=== PATIENT | female | born 1990 | race African-American/Black ===

== ENCOUNTER 2020-09-02 10:04 | Emergency (ER) | payer SELFPAY ==
[~2020-09-02] VITALS: Ht 165.1 cm; Wt 119.7 kg
[2020-09-02 10:14] VITALS: BP 134/96
--- NOTE | 2020-09-02 10:25 | NUR ---
SEEN AND EXAMINED BY .
--- NOTE | 2020-09-02 11:20 | NUR ---
Patient discharged to home in stable condition. Written and verbal after care instructions given. Patient verbalizes understanding of instruction.
== END 2020-09-02 11:21 | disposition home or self-care (01) ==
LOC: ER 10:10
DX: S63.591A Other specified sprain of right wrist, initial encounter (principal); F17.200 Nicotine dependence, unspecified, uncomplicated; Z88.0 Allergy status to penicillin; X58.XXXA Exposure to other specified factors, initial encounter; Y93.89 Activity, other specified; Y92.89 Other specified places as the place of occurrence of the external cause; Y99.8 Other external cause status
CPT/HCPCS: 73110

== ENCOUNTER 2023-11-30 01:57 | Inpatient (IN) | payer MEDICAID ==
[~2023-11-30] VITALS: Ht 165.1 cm; Wt 117.0 kg
[2023-11-30] MEDS ORDERED: CLINDAMYCIN HCL 150 MG CAPSULE ONE (03:09)
[2023-11-30] MEDS ORDERED: TDAP [DIPH/PERTUSSIS/TET] 0.5 ML VIAL IM ONE (03:10)
[2023-11-30] MEDS: CLINDAMYCIN HCL 150 MG CAPSULE PO ONE (03:10)
[2023-11-30] MEDS: HYDROCODONE/APAP 5/325MG TABLET PO ONE (03:11)
[2023-11-30] MEDS: TDAP [DIPH/PERTUSSIS/TET] 0.5 ML VIAL IM ONE (03:16)
[2023-11-30] MEDS ORDERED: MAG HYDROX/AL HYDROX/SIMETH 30 ML UDC PO PRN (04:00)
[2023-11-30] MEDS ORDERED: Z GUARD REMEDY 4 OZ OINT TP PRN (04:00)
[2023-11-30] MEDS ORDERED: MAGNESIUM HYDROXIDE 30 ML UDC PO PRN (04:00)
[2023-11-30] MEDS ORDERED: ONDANSETRON HCL/PF 4 MG/2 ML VIAL IVP PRN (04:00)
[2023-11-30] MEDS ORDERED: VANCOMYCIN 1 GM /D5W 250 ML PB IV ONE (04:14)
[2023-11-30] MEDS: VANCOMYCIN 1 GM in IV D5W 250 ML IV ONE (04:14)
[2023-11-30 04:22] LABS: BASOPHILS # (AUTO) 0.1 K/uL (0.0-0.2); BASOPHILS % (AUTO) 0.4 % (0.0-2.0); EOSINOPHILS # (AUTO) 0.2 K/uL (0.0-0.7); EOSINOPHILS % (AUTO) 1.7 % (0.0-6.0); HEMATOCRIT 39 % (33-45); HEMOGLOBIN 13.5 g/dL (11.5-14.8); LYMPHOCYTES # (AUTO) 2.1 K/uL (0.8-4.8); LYMPHOCYTES % (AUTO) 15.2 % (20.0-44.0); MEAN CORPUSCULAR HEMOGLOBIN 28 PG (26.0-33.0); MEAN CORPUSCULAR HGB CONC 34 g/dl (31.0-36.0); MEAN CORPUSCULAR VOLUME 82 fL (82-100); MONOCYTES # (AUTO) 0.9 K/uL (0.1-1.30); MONOCYTES % (AUTO) 6.6 % (2.0-12.0); NEUTROPHILS # (AUTO) 10.7 K/uL (1.8-8.9); NEUTROPHILS % (AUTO) 76.1 % (43.0-81.0); PLATELET COUNT (AUTO) 243 K/uL (150-450); RED BLOOD CELL COUNT(AUTO) 4.79 MIL/uL (4.0-5.2); RED CELL DISTRIBUTION WIDTH 14.1 % (11.5-15.0); WHITE BLOOD COUNT (AUTO) 14.1 K/uL (4.3-11.0)
[2023-11-30 04:36] LABS: INR 0.95 (0.91-1.10); PARTIAL THROMBOPLASTIN TIME 21.5 SEC (24.3-34.3); PROTHROMBIN TIME 10.1 SECS (9.2-11.1)
[2023-11-30 04:42] LABS: POTASSIUM 4.1 mmol/L (3.5-5.1)
[2023-11-30 04:43] LABS: CREATININE 0.6 mg/dL (0.6-1.3)
[2023-11-30] MEDS: IV NS 0.9% 1,000 ML IV SCH (05:09)
[2023-11-30 05:10] VITALS: BP 147/100; TEMP 98.4; O2SAT 98
[2023-11-30 07:00] VITALS: BP 135/90; TEMP 98.4; O2SAT 99
[2023-11-30] MEDS: HYDROCODONE/APAP 5/325MG TABLET PO PRN (09:58)
[2023-11-30] MEDS ORDERED: CLINDAMYCIN IV RTU IN D5W 600 MG/50 ML PIGGYBACK IV SCH (11:00)
[2023-11-30] MEDS: CLINDAMYCIN 600 MG in IV NS 0.9% 46 ML IV SCH ×2 (12:35→20:46)
[2023-11-30] MEDS: IV NS 0.9% 1,000 ML IV PRN (14:31)
[2023-11-30] MEDS: ACETAMINOPHEN 325 MG TABLET PO PRN (15:58)
[2023-11-30 16:00] VITALS: BP 140/92; TEMP 98.4; O2SAT 97
[2023-11-30 18:40] LABS: PREGNANCY TEST URINE QUAL POSITIVE (NEGATIVE)
[2023-11-30 20:13] VITALS: BP 145/89; TEMP 99.1; O2SAT 100
[2023-12-01 06:31] LABS: BASOPHILS % (AUTO) 0.1 % (0.0-2.0); EOSINOPHILS # (AUTO) 0.1 K/uL (0.0-0.7); EOSINOPHILS % (AUTO) 0.9 % (0.0-6.0); HEMATOCRIT 42 % (33-45); HEMOGLOBIN 14.1 g/dL (11.5-14.8); LYMPHOCYTES # (AUTO) 2.2 K/uL (0.8-4.8); LYMPHOCYTES % (AUTO) 14.4 % (20.0-44.0); MEAN CORPUSCULAR HEMOGLOBIN 28 PG (26.0-33.0); MEAN CORPUSCULAR HGB CONC 34 g/dl (31.0-36.0); MEAN CORPUSCULAR VOLUME 82 fL (82-100); MONOCYTES # (AUTO) 1.1 K/uL (0.1-1.30); MONOCYTES % (AUTO) 7.3 % (2.0-12.0); NEUTROPHILS # (AUTO) 11.9 K/uL (1.8-8.9); NEUTROPHILS % (AUTO) 77.3 % (43.0-81.0); PLATELET COUNT (AUTO) 224 K/uL (150-450); RED BLOOD CELL COUNT(AUTO) 5.07 MIL/uL (4.0-5.2); RED CELL DISTRIBUTION WIDTH 14.3 % (11.5-15.0); WHITE BLOOD COUNT (AUTO) 15.4 K/uL (4.3-11.0)
[2023-12-01 07:03] LABS: CALCIUM, SERUM 9.5 mg/dL (8.5-10.1); CREATININE 0.6 mg/dL (0.6-1.3); MAGNESIUM 1.9 mg/dL (1.8-2.4); PHOSPHORUS 3.7 mg/dL (2.5-4.9); POTASSIUM 3.9 mmol/L (3.5-5.1)
[2023-12-01 08:00] VITALS: BP 144/96; TEMP 98.6; O2SAT 97
[2023-12-01 16:00] VITALS: BP 139/88; TEMP 98.4; O2SAT 98
[2023-12-01 20:00] VITALS: BP 137/71; TEMP 98.4; O2SAT 98
[2023-12-01] MEDS ORDERED: POLYMYXIN B SULFATE 500,000 UNITS ONE (20:51)
[2023-12-01] MEDS ORDERED: BUPIVACAINE 0.5 % PF 150 MG/30 ML VIAL ONE (20:51)
[2023-12-01] MEDS ORDERED: LIDOCAINE 1%-EPI 1:100,000 20 ML VIAL ONE (20:51)
[2023-12-01] MEDS ORDERED: ANESTHESIA TRAY IN PYXIS 1 EA TRAY MC ONE (20:51)
[2023-12-01] MEDS ORDERED: ROPIVACAINE HCL 0.5% 5 MG/ML 30ML VIAL ONE (21:08)
[2023-12-01] MEDS ORDERED: GLYCOPYRROLATE 0.2 MG/ML VIAL ONE (21:09)
[2023-12-01] MEDS ORDERED: FENTANYL PF 100MCG/2ML AMPUL ONE (21:09)
[2023-12-01] MEDS ORDERED: MIDAZOLAM HCL 2 MG/2ML VIAL ONE (21:55)
[2023-12-01] MEDS ORDERED: LABETALOL HCL IV 100MG VIAL ONE (22:11)
[2023-12-01] MEDS ORDERED: ACETAMINOPHEN ES 500 MG TABLET PO PRN (23:00)
[2023-12-01] MEDS ORDERED: IV LR 1000 ML 1,000 ML BAG IV PRN (23:00)
[2023-12-01] MEDS: IV LR 1000 ML 1,000 ML BAG IV ONE (23:29)
[2023-12-02 06:47] VITALS: BP 120/73; TEMP 98.4; O2SAT 98
[2023-12-02 08:20] VITALS: BP 119/79; TEMP 98.2; O2SAT 99
[2023-12-02] MEDS ORDERED: CLIN300C12 PO (11:45)
== END 2023-12-02 10:20 | disposition left against medical advice (07) | DRG 364 ==
LOC: ER 01:59 → MED 04:47
PROC: 0J9J0ZZ Drainage of Right Hand Subcutaneous Tissue and Fascia, Open Approach (ICD-10-PCS; principal; 2023-11-30)
PROC: 0JBJ0ZZ Excision of Right Hand Subcutaneous Tissue and Fascia, Open Approach (ICD-10-PCS; 2023-11-30)
DX: L03.113 Cellulitis of right upper limb (principal); D72.829 Elevated white blood cell count, unspecified; E66.01 Morbid (severe) obesity due to excess calories; L02.511 Cutaneous abscess of right hand; S62.342A Nondisplaced fracture of base of third metacarpal bone, right hand, initial encounter for closed fracture; W45.8XXA Other foreign body or object entering through skin, initial encounter; Y93.89 Activity, other specified; Z32.01 Encounter for pregnancy test, result positive; Z88.0 Allergy status to penicillin; W26.8XXA Contact with other sharp object(s), not elsewhere classified, initial encounter; Z68.41 Body mass index [BMI] 40.0-44.9, adult; Y92.009 Unspecified place in unspecified non-institutional (private) residence as the place of occurrence of the external cause
CPT/HCPCS: 36415; 73130-TC; 73221-TC; 76805-TC; 80048-TC; 83735-TC; 84100-TC; 84702-TC; 84703-TC; 85025-TC; 85652-TC; 85730-TC; 86140-TC; 87040-TC; 87102-TC; 90715; A4223; A6407; G0378; J2250; J2704; J2795; J3010; J3370; J3490; J7030; J7060; J7120

== ENCOUNTER 2024-04-24 00:09 | Emergency (ER) | payer MEDICAID, OTHER ==
[~2024-04-24] VITALS: Ht 165.1 cm; Wt 117.0 kg
[~2024-04-24 00:09] MED LIST: CLIN300C12 PO
[2024-04-24 02:31] VITALS: BP 136/88; TEMP 98; O2SAT 98
== END 2024-04-24 02:32 ==
LOC: ER 00:16
DX: O26.891 Other specified pregnancy related conditions, first trimester (principal); Z65.3 Problems related to other legal circumstances; O99.332 Smoking (tobacco) complicating pregnancy, second trimester; F17.200 Nicotine dependence, unspecified, uncomplicated; Z3A.21 21 weeks gestation of pregnancy; Z88.0 Allergy status to penicillin